=== PATIENT | male | born 1975 | race Caucasian/White ===

== ENCOUNTER → 2019-11-10 | Outpatient (CLI) | payer BC | END | disposition home or self-care (01) | LOC: LAB EV 18:30 → LAB SHORT 18:30 | DX: J02.9 Acute pharyngitis, unspecified (principal) | CPT/HCPCS: 87081 ==

== ENCOUNTER → 2019-11-30 | Outpatient (CLI) | payer BC ==
[2019-11-30 17:58] LABS: BASOPHILS ABSOLUTE AUTO 0.09 K/mm3 (0.00-0.23); BASOPHILS PERCENT AUTO 1 % (0-2); EOSINOPHILS ABSOLUTE AUTO 0.43 K/mm3 (0.00-0.68); EOSINOPHILS PERCENT AUTO 5 % (0-6); Hematocrit 44.2 % (37.0-53.0); Hemoglobin 15.3 g/dL (13.5-17.5); IMMATURE GRAN ABSOLUTE AUTO 0.02 K/mm3 (0.00-0.10); IMMATURE GRAN PERCENT AUTO 0 % (0-1); LYMPHOCYTES ABSOLUTE AUTO 3.03 K/mm3 (0.84-5.20); LYMPHOCYTES PERCENT AUTO 35 % (21-46); MONOCYTES ABSOLUTE AUTO 0.85 K/mm3 (0.16-1.47); MONOCYTES PERCENT AUTO 10 % (4-13); Mean Corpuscular HGB 29.1 pg (26.0-34.0); Mean Corpuscular HGB Conc 34.6 g/dL (31.5-36.5); Mean Corpuscular Volume 84 fL (80-100); Mean Platelet Volume 10.8 fL (9.1-12.4); NEUTROPHILS ABSOLUTE AUTO 4.21 K/mm3 (1.96-9.15); NEUTROPHILS PERCENT AUTO 49 % (41-73); Platelet Count 257 K/mm3 (150-400); RDW Coefficient Variation 12.3 % (11.7-14.2); Red Blood Cell Count 5.26 M/mm3 (4.30-5.90); White Blood Cell Count 8.63 K/mm3 (4.00-11.30)
[2019-11-30 18:07] LABS: Alanine Aminotransfer (ALT/SGP 70 U/L (12-78); Albumin, Blood 4.2 g/dL (3.4-5.0); Alk Phos 86 U/L (40-126); Anion Gap 11 mmol/L (6-16); Aspartate Aminotrans (AST/SGOT 33 U/L (12-37); Bilirubin, Total 0.5 mg/dL (0.1-1.0); Blood Urea Nitrogen 19 mg/dL (8-24); Bun/Creatinine Ratio 21.3 (12.0-20.0); CO2, Blood 28 mmol/L (21-32); Calcium, Blood 8.8 mg/dL (8.5-10.1); Chloride, Blood 101 mmol/L (98-108); Creatinine, Blood 0.89 mg/dL (0.60-1.20); Globulin, Blood 4.1 g/dL (2.2-4.0); Glomerular Filtration Rate >60 (60-); Glucose, Blood 88 mg/dL (70-99); Potassium, Blood 4.2 mmol/L (3.5-5.5); Sodium, Blood 140 mmol/L (136-145); Total Protein, Blood 8.3 g/dL (6.4-8.2)
== END ==
LOC: LAB SHORT 17:47 → LAB EV 17:47
PROVIDERS: Physician Assistant
DX: J03.91 Acute recurrent tonsillitis, unspecified (principal)
CPT/HCPCS: 80053; 85025; 87081

== ENCOUNTER 2020-10-23 18:59 | Inpatient (IN) | payer BC ==
[~2020-10-23] VITALS: Ht 185.4 cm; Wt 94.9 kg
[2020-10-23 19:49] LABS: BASOPHILS ABSOLUTE AUTO 0.07 K/mm3 (0.00-0.23); BASOPHILS PERCENT AUTO 0 % (0-2); EOSINOPHILS ABSOLUTE AUTO 0.02 K/mm3 (0.00-0.68); EOSINOPHILS PERCENT AUTO 0 % (0-6); Hematocrit 45.5 % (37.0-53.0); Hemoglobin 15.6 g/dL (13.5-17.5); IMMATURE GRAN ABSOLUTE AUTO 0.11 K/mm3 (0.00-0.10); IMMATURE GRAN PERCENT AUTO 1 % (0-1); LYMPHOCYTES ABSOLUTE AUTO 1.89 K/mm3 (0.84-5.20); LYMPHOCYTES PERCENT AUTO 10 % (21-46); MONOCYTES ABSOLUTE AUTO 2.26 K/mm3 (0.16-1.47); MONOCYTES PERCENT AUTO 12 % (4-13); Mean Corpuscular HGB 28.8 pg (26.0-34.0); Mean Corpuscular HGB Conc 34.3 g/dL (31.5-36.5); Mean Corpuscular Volume 84 fL (80-100); Mean Platelet Volume 10.3 fL (9.1-12.4); NEUTROPHILS ABSOLUTE AUTO 14.66 K/mm3 (1.96-9.15); NEUTROPHILS PERCENT AUTO 77 % (41-73); Platelet Count 279 K/mm3 (150-400); RDW Coefficient Variation 11.8 % (11.7-14.2); RDW Standard Deviation 35.7 fL (35.1-46.3); Red Blood Cell Count 5.42 M/mm3 (4.30-5.90); White Blood Cell Count 19.01 K/mm3 (4.00-11.30)
[2020-10-23 20:09] LABS: Alanine Aminotransfer (ALT/SGP 87 U/L (12-78); Albumin, Blood 4.1 g/dL (3.4-5.0); Alk Phos 130 U/L (50-136); Anion Gap 3 mmol/L (6-16); Aspartate Aminotrans (AST/SGOT 35 U/L (12-37); Bilirubin, Total 1.3 mg/dL (0.1-1.0); Blood Urea Nitrogen 16 mg/dL (8-24); Bun/Creatinine Ratio 17.8 (12.0-20.0); CO2, Blood 27 mmol/L (21-32); Calcium, Blood 9.5 mg/dL (8.5-10.1); Chloride, Blood 104 mmol/L (98-108); Glomerular Filtration Rate >60 (60-); Glucose, Blood 99 mg/dL (70-99); Potassium, Blood 3.9 mmol/L (3.5-5.5); Sodium, Blood 134 mmol/L (136-145); Total Protein, Blood 8.1 g/dL (6.4-8.2)
[2020-10-23 20:27] LABS: Source, Urine Clean Catch
[2020-10-23 20:33] LABS: Appearance, Urine Clear (Clear); Bilirubin, Urine Neg (Neg); Blood, Urine 1+ (Neg); Color, Urine Amber (P-Yellow); Glucose Qualitative, Urine Neg (Neg); Ketones, Urine 4+ (Neg); Leukocyte Esterase, Urine 1+ (Neg); Nitrite, Urine Neg (Neg); Protein, Urine 1+ (Neg); Specific Gravity, Urine 1.015 (1.003-1.022); Urobilinogen, Urine NORM (Normal)
[2020-10-23 20:43] LABS: Red Blood Cells, Urine 0-2 /hpf (0-2); Squamous Epithelial Cells Not Seen /hpf (Few)
[2020-10-23 20:44] LABS: Bacteria Not Seen /hpf
[2020-10-23] MEDS ORDERED: MULVITA PO (22:06)
[2020-10-23 22:17] LABS: International Normalized Ratio 1.13
[2020-10-24] LABS: Influenza A, PCR NEGATIVE (NEGATIVE); Influenza B, PCR NEGATIVE (NEGATIVE); Resp Syncytial Virus, PCR NEGATIVE (NEGATIVE); SARS-Cov-2 (COVID-19) PCR, MMC NEGATIVE (NEGATIVE)
--- NOTE | 2020-10-24 04:01 | NUR ---
SHIFT SUMMARY PT ARRIVED TO UNIT AROUND 0140, TRANSFERRED TO BED FROM [facility]. A/O X4, VSS, ORIENTED TO ROOM AND CALL LIGHT. C/O INFERIOR ABD PAIN, SURGERY TENTATIVELY SCHEDULED FOR LATER TODAY. DENIES N/V, NPO SINCE MIDNIGHT, ORAL SWABS PROVIDED, FLUIDS INFUSING PER ORDER, PAIN WELL CONTROLLED PER EMAR. CALL LIGHT IN REACH, WILL CONTINUE TO MONITOR AND REPORT TO ONCOMING DAY RN.
--- NOTE | 2020-10-24 09:17 | NUR ---
A&OX3, DENIES ANY NAUSEA, C/O MILD ABD PAIN, DENIES ANY NEED FOR PAIN MEDS AT THIS TIME, CONT. TO MONITOR FOR ANY CHANGES, MEDICATE FOR PAIN PRN.
--- NOTE | 2020-10-24 17:49 | NUR ---
SUMMARY NO SURGERY TODAY PER DR. MIRANDA, DENIES ANY NEED FOR PAIN MED FOR ABD PAIN T/O SHIFT, REPORTS PAIN HAS BEEN TOLERABLE, REPORTS TYLENOL HELPED SLIGHTLY FOR H/A, OOB TO AMBULATE THIS EVENING, TOLERATING WELL, NO ACUTE CHANGES THIS SHIFT.
--- NOTE | 2020-10-25 02:42 | NUR ---
SHIFT SUMMARY S/P PERF DIVERTIC, A/O X4, VSS, NPO W/ SIPS/CHIPS, INDEPENDENT IN ROOM, VOIDING WELL, REPORTS NO BM TODAY, C/O FEELING GAS IN ABD W/ ACHEY/CRAMPY FEELING, ABX INFUSING PER ORERS, PAIN WELL CONTROLLED PER EMAR. CALL LIGHT IN REACH, WILL CONTINUE TO MONITOR AND REPORT TO ONCOMLING DAY RN.
[2020-10-25 05:35] LABS: BASOPHILS ABSOLUTE AUTO 0.05 K/mm3 (0.00-0.23); BASOPHILS PERCENT AUTO 0 % (0-2); EOSINOPHILS ABSOLUTE AUTO 0.33 K/mm3 (0.00-0.68); EOSINOPHILS PERCENT AUTO 3 % (0-6); Hematocrit 40.8 % (37.0-53.0); Hemoglobin 13.7 g/dL (13.5-17.5); IMMATURE GRAN ABSOLUTE AUTO 0.06 K/mm3 (0.00-0.10); IMMATURE GRAN PERCENT AUTO 1 % (0-1); LYMPHOCYTES ABSOLUTE AUTO 2.89 K/mm3 (0.84-5.20); LYMPHOCYTES PERCENT AUTO 23 % (21-46); MONOCYTES ABSOLUTE AUTO 1.34 K/mm3 (0.16-1.47); MONOCYTES PERCENT AUTO 10 % (4-13); Mean Corpuscular HGB 29.1 pg (26.0-34.0); Mean Corpuscular HGB Conc 33.6 g/dL (31.5-36.5); Mean Corpuscular Volume 87 fL (80-100); Mean Platelet Volume 10.5 fL (9.1-12.4); NEUTROPHILS ABSOLUTE AUTO 8.16 K/mm3 (1.96-9.15); NEUTROPHILS PERCENT AUTO 64 % (41-73); Platelet Count 273 K/mm3 (150-400); RDW Standard Deviation 38.5 fL (35.1-46.3); White Blood Cell Count 12.83 K/mm3 (4.00-11.30)
[2020-10-25 06:14] LABS: Alanine Aminotransfer (ALT/SGP 55 U/L (12-78); Albumin, Blood 3.1 g/dL (3.4-5.0); Albumin/Globulin Ratio 0.7 (0.8-1.8); Alk Phos 115 U/L (50-136); Anion Gap 6 mmol/L (6-16); Aspartate Aminotrans (AST/SGOT 22 U/L (12-37); Bilirubin, Total 1.2 mg/dL (0.1-1.0); Blood Urea Nitrogen 11 mg/dL (8-24); Bun/Creatinine Ratio 13.6 (12.0-20.0); CO2, Blood 26 mmol/L (21-32); Calcium, Blood 8.6 mg/dL (8.5-10.1); Chloride, Blood 105 mmol/L (98-108); Creatinine, Blood 0.81 mg/dL (0.60-1.20); Globulin, Blood 4.2 g/dL (2.2-4.0); Glomerular Filtration Rate >60 (60-); Glucose, Blood 74 mg/dL (70-99); Potassium, Blood 3.7 mmol/L (3.5-5.5); Sodium, Blood 137 mmol/L (136-145); Total Protein, Blood 7.3 g/dL (6.4-8.2)
--- NOTE | 2020-10-25 16:16 | NUR ---
Shift Summary A/Ox4. Independent, able to make needs known. C/O mild lower abdominal pain, denies need for pain medication. Patient reports passing flatus. Denies nausea, vomiting, diarrhea. Eager to go home. Tolerates PO clear liquids good. Saline locked. No acute changes. account installer Arika to assume care, report given.
--- NOTE | 2020-10-25 17:03 | NUR ---
CARE ASSUMED OF PT AT 1600. PT IN SHOWER AT TIME CARE WAS ASSUMED. WILL MONITOR UNTIL REPORT TO NOC RN.
--- NOTE | 2020-10-25 19:11 | NUR ---
SHIFT SUMMARY NO CHANGES TO REPORT SINCE CARE WAS ASSUMED AT 1600.
--- NOTE | 2020-10-26 04:25 | NUR ---
SHIFT SUMMARY PT RESTING WELL THIS AM. AAOX4. PT REPORTING MINIMAL DISCOMFORT THIS SHIFT, DENIES NAUSEA/EMESIS. ABD DISTENSION DECREASED PER PT THIS SHIFT, REPORTING MODERATE AMOUNTS OF FLATUS, NO BM. INDEPENDENT IN ROOM. TOLERATING CLEAR LIQUIDS + GOOD URINE OUTPUT. IV ABX PER ORDERS. AWAITING LABS THIS AM. CURRENTLY PT RESTING WELL IN BED WITH CALL LIGHT IN REACH.
[2020-10-26 05:29] LABS: Hematocrit 38.1 % (37.0-53.0); Hemoglobin 12.8 g/dL (13.5-17.5); Mean Corpuscular HGB Conc 33.6 g/dL (31.5-36.5); Mean Corpuscular Volume 86 fL (80-100); Mean Platelet Volume 10.1 fL (9.1-12.4); Platelet Count 269 K/mm3 (150-400); RDW Standard Deviation 37.9 fL (35.1-46.3); Red Blood Cell Count 4.42 M/mm3 (4.30-5.90); White Blood Cell Count 8.41 K/mm3 (4.00-11.30)
[2020-10-26] MEDS ORDERED: AMOCLA875 PO (11:55)
[2020-10-26] MEDS ORDERED: DOCU100 PO (11:55)
[2020-10-26] MEDS ORDERED: ACET500 PO (11:55)
--- NOTE | 2020-10-26 13:30 | NUR ---
DISCHARGE SUMMARY PT A&OX4, VSS, WALKED OFF FLOOR (DECLINED WC), WITH ALL PERSONAL POSSESSIONS INCLUDING DC PACKET AND SCRIPT FOR AUGMENTIN, TO GO HOME. DC INSTRUCTIONS PROVIDED. PT REP UNDERSTANDING THOSE INSTRUCTIONS INCLUDING FU APPT WITH DR MIRANDA, LOW FAT DIET X2WKS, PROBIOTIC/YOGURT 2-3 HOURS PRIOR TO TAKING ABX. IV DC'D.
== END 2020-10-26 14:33 | disposition home or self-care (01) | DRG 392 ==
LOC: ER 18:59 → SURS 10-24 01:00
PROVIDERS: Emergency Medicine; Physician Assistant; Surgery; ADMIT Surgery
DX: K57.20 Diverticulitis of large intestine with perforation and abscess without bleeding (principal); Z20.822 Contact with and (suspected) exposure to COVID-19
CPT/HCPCS: 0241U; 36415; 74177; 80053; 81001; 83605; 83690; 85025; 85027; 85610; 85730; 87040; 87086; 93005; 93010; 96374-59; 96375; 96376; 99285-25; A9270; G0378; J1170; J2543; J7030; J7050; J7120; Q9967

== ENCOUNTER 2020-10-27 17:09 | Inpatient (IN) | payer BC ==
[~2020-10-27] VITALS: Ht 182.9 cm; Wt 97.5 kg
[~2020-10-27 17:09] MED LIST: ACET500 PO; AMOCLA875 PO; DOCU100 PO; MULVITA PO
[2020-10-27 17:42] LABS: BASOPHILS ABSOLUTE AUTO 0.06 K/mm3 (0.00-0.23); BASOPHILS PERCENT AUTO 0 % (0-2); EOSINOPHILS PERCENT AUTO 1 % (0-6); Hematocrit 43.6 % (37.0-53.0); Hemoglobin 14.3 g/dL (13.5-17.5); IMMATURE GRAN ABSOLUTE AUTO 0.08 K/mm3 (0.00-0.10); IMMATURE GRAN PERCENT AUTO 1 % (0-1); LYMPHOCYTES ABSOLUTE AUTO 1.53 K/mm3 (0.84-5.20); LYMPHOCYTES PERCENT AUTO 10 % (21-46); MONOCYTES ABSOLUTE AUTO 2.05 K/mm3 (0.16-1.47); MONOCYTES PERCENT AUTO 13 % (4-13); Mean Corpuscular HGB 28.1 pg (26.0-34.0); Mean Corpuscular HGB Conc 32.8 g/dL (31.5-36.5); Mean Corpuscular Volume 86 fL (80-100); Mean Platelet Volume 9.7 fL (9.1-12.4); NEUTROPHILS ABSOLUTE AUTO 12.34 K/mm3 (1.96-9.15); NEUTROPHILS PERCENT AUTO 76 % (41-73); Platelet Count 349 K/mm3 (150-400); RDW Coefficient Variation 11.8 % (11.7-14.2); RDW Standard Deviation 37.4 fL (35.1-46.3); Red Blood Cell Count 5.08 M/mm3 (4.30-5.90); White Blood Cell Count 16.16 K/mm3 (4.00-11.30)
[2020-10-27 18:03] LABS: Alanine Aminotransfer (ALT/SGP 67 U/L (12-78); Albumin, Blood 3.3 g/dL (3.4-5.0); Albumin/Globulin Ratio 0.7 (0.8-1.8); Alk Phos 169 U/L (50-136); Anion Gap 7 mmol/L (6-16); Aspartate Aminotrans (AST/SGOT 49 U/L (12-37); Bilirubin, Total 0.9 mg/dL (0.1-1.0); Blood Urea Nitrogen 12 mg/dL (8-24); Bun/Creatinine Ratio 15.7 (12.0-20.0); CO2, Blood 23 mmol/L (21-32); Calcium, Blood 9.3 mg/dL (8.5-10.1); Chloride, Blood 105 mmol/L (98-108); Creatinine, Blood 0.76 mg/dL (0.60-1.20); Globulin, Blood 4.7 g/dL (2.2-4.0); Glomerular Filtration Rate >60 (60-); Glucose, Blood 91 mg/dL (70-99); Potassium, Blood 3.8 mmol/L (3.5-5.5); Sodium, Blood 135 mmol/L (136-145)
[2020-10-27 18:57] LABS: Source, Urine Clean Catch
[2020-10-27 19:03] LABS: Appearance, Urine Clear (Clear); Bilirubin, Urine Neg (Neg); Blood, Urine 1+ (Neg); Color, Urine Yellow (P-Yellow); Glucose Qualitative, Urine Neg (Neg); Ketones, Urine 4+ (Neg); Leukocyte Esterase, Urine 1+ (Neg); Nitrite, Urine Neg (Neg); Protein, Urine 1+ (Neg); Urobilinogen, Urine 1+ (Normal)
[2020-10-27 19:09] LABS: Bacteria Not Seen /hpf; Mucus Light (0-Heavy); Red Blood Cells, Urine Rare /hpf (0-2); Squamous Epithelial Cells Rare /hpf (Few); White Blood Cells, Urine Rare /hpf (0-5)
--- NOTE | 2020-10-28 04:52 | NUR ---
SHIFT SUMMARY PT NEW ADMIT THIS SHIFT. AAOX4. DISCOMFORT DECREASED WITH 0.5MG IV DILAUDID. NO NAUSEA/EMESIS. ABD SOFT/TENDER WITH PALPATION. ORIENTED TO ROOM + CALL LIGHT USE. IVF PER ORDERS. PT REFUSING SCDs. RESTING WELL THIS AM WITH CALL LIGHT IN REACH.
[2020-10-28 05:54] LABS: BASOPHILS ABSOLUTE AUTO 0.07 K/mm3 (0.00-0.23); BASOPHILS PERCENT AUTO 0 % (0-2); EOSINOPHILS ABSOLUTE AUTO 0.23 K/mm3 (0.00-0.68); EOSINOPHILS PERCENT AUTO 1 % (0-6); Hematocrit 38.3 % (37.0-53.0); Hemoglobin 13.1 g/dL (13.5-17.5); IMMATURE GRAN ABSOLUTE AUTO 0.07 K/mm3 (0.00-0.10); IMMATURE GRAN PERCENT AUTO 0 % (0-1); LYMPHOCYTES ABSOLUTE AUTO 1.62 K/mm3 (0.84-5.20); LYMPHOCYTES PERCENT AUTO 10 % (21-46); MONOCYTES PERCENT AUTO 14 % (4-13); Mean Corpuscular HGB 29.2 pg (26.0-34.0); Mean Corpuscular HGB Conc 34.2 g/dL (31.5-36.5); Mean Corpuscular Volume 85 fL (80-100); Mean Platelet Volume 10.1 fL (9.1-12.4); NEUTROPHILS ABSOLUTE AUTO 11.82 K/mm3 (1.96-9.15); NEUTROPHILS PERCENT AUTO 74 % (41-73); Platelet Count 296 K/mm3 (150-400); RDW Coefficient Variation 11.9 % (11.7-14.2); RDW Standard Deviation 36.9 fL (35.1-46.3); Red Blood Cell Count 4.49 M/mm3 (4.30-5.90); White Blood Cell Count 16.01 K/mm3 (4.00-11.30)
[2020-10-28 06:15] LABS: Anion Gap 8 mmol/L (6-16); Blood Urea Nitrogen 8 mg/dL (8-24); Bun/Creatinine Ratio 9.9 (12.0-20.0); CO2, Blood 23 mmol/L (21-32); Calcium, Blood 8.4 mg/dL (8.5-10.1); Chloride, Blood 105 mmol/L (98-108); Creatinine, Blood 0.81 mg/dL (0.60-1.20); Glomerular Filtration Rate >60 (60-); Glucose, Blood 101 mg/dL (70-99); Potassium, Blood 3.6 mmol/L (3.5-5.5); Sodium, Blood 136 mmol/L (136-145)
--- NOTE | 2020-10-28 18:01 | NUR ---
REPORTS PAIN HAS BEEN TOLERABLE WITH CURRENT PAIN REGIMEN, REPORTS HAVING SOME ABD BLAOTING, TOLERATING SIPS OF CLEAR LIQUIDS, DECREASED APPETITE, AMBULATED DOWN THE HALLS, NO ACUTE CHANGES THIS SHIFT.
--- NOTE | 2020-10-29 08:07 | NUR ---
REPORTS PASSING FLATUS, DENIES ANY NEED FOR PAIN MEDS AT THIS TIME, DENIES ANY NAUSEA, C/O MILD ABD BLOATING, DENIES ANY OTHER DISCOMFORT, CONT. TO MONITOR FOR ANY CHANGES, ENCOURAGED TO AMBULATE.
--- NOTE | 2020-10-29 17:48 | NUR ---
SUMMARY DENIES ANY NEED FOR PAIN MEDS T/O SHIFT, DENIES ANY NAUSEA, AMBULATED X3 TODAY, STARTED FULL LIQUIDS FOR DINNER, TOLERATING WELL SO FAR, REPORTS PASSING FLATUS TODAY, NO ACUTE CHANGES THIS SHIFT.
--- NOTE | 2020-10-30 03:59 | NUR ---
SHIFT SUMMARY: PT STABLE THROUGHOUT NIGHT. VS WNL. IV ABX AND FLUIDS INFUSING PER EMAR. PT VOIDING WELL. DENIES NEED FOR PAIN MEDS THIS SHIFT. C/O NAUSEA ONCE AND MEDICATED WITH ZOFRAN. NO EMESIS. PT INDEPENDENT IN ROOM.
[2020-10-30 05:00] LABS: BASOPHILS ABSOLUTE AUTO 0.06 K/mm3 (0.00-0.23); BASOPHILS PERCENT AUTO 1 % (0-2); EOSINOPHILS ABSOLUTE AUTO 0.47 K/mm3 (0.00-0.68); EOSINOPHILS PERCENT AUTO 6 % (0-6); Hematocrit 40.6 % (37.0-53.0); Hemoglobin 13.6 g/dL (13.5-17.5); IMMATURE GRAN PERCENT AUTO 1 % (0-1); LYMPHOCYTES ABSOLUTE AUTO 2.77 K/mm3 (0.84-5.20); LYMPHOCYTES PERCENT AUTO 36 % (21-46); MONOCYTES ABSOLUTE AUTO 1.08 K/mm3 (0.16-1.47); MONOCYTES PERCENT AUTO 14 % (4-13); Mean Corpuscular HGB 28.4 pg (26.0-34.0); Mean Corpuscular HGB Conc 33.5 g/dL (31.5-36.5); Mean Corpuscular Volume 85 fL (80-100); Mean Platelet Volume 9.7 fL (9.1-12.4); NEUTROPHILS ABSOLUTE AUTO 3.33 K/mm3 (1.96-9.15); NEUTROPHILS PERCENT AUTO 43 % (41-73); Platelet Count 377 K/mm3 (150-400); RDW Coefficient Variation 11.9 % (11.7-14.2); RDW Standard Deviation 36.2 fL (35.1-46.3); Red Blood Cell Count 4.79 M/mm3 (4.30-5.90); White Blood Cell Count 7.81 K/mm3 (4.00-11.30)
[2020-10-30 05:20] LABS: Alanine Aminotransfer (ALT/SGP 56 U/L (12-78); Albumin, Blood 2.9 g/dL (3.4-5.0); Albumin/Globulin Ratio 0.7 (0.8-1.8); Alk Phos 158 U/L (50-136); Anion Gap 7 mmol/L (6-16); Aspartate Aminotrans (AST/SGOT 31 U/L (12-37); Bilirubin, Total 0.4 mg/dL (0.1-1.0); Blood Urea Nitrogen 9 mg/dL (8-24); Bun/Creatinine Ratio 11.6 (12.0-20.0); CO2, Blood 26 mmol/L (21-32); Calcium, Blood 8.6 mg/dL (8.5-10.1); Chloride, Blood 107 mmol/L (98-108); Creatinine, Blood 0.78 mg/dL (0.60-1.20); Globulin, Blood 4.3 g/dL (2.2-4.0); Glomerular Filtration Rate >60 (60-); Glucose, Blood 92 mg/dL (70-99); Potassium, Blood 3.6 mmol/L (3.5-5.5); Sodium, Blood 140 mmol/L (136-145); Total Protein, Blood 7.2 g/dL (6.4-8.2)
--- NOTE | 2020-10-30 13:33 | NUR ---
HE HAS BEEN AWAKE ALL DAY BUT HAS HAD A H/A FOR MUCH OF IT. TYLENOL WAS INEFFECTIVE. I JUST GAVE HIM AN OXYCODONE TO SEE IF THAT WILL HELP. HE HAS BEEN HESITANT TO TAKE OXYCODONE BECAUSE HE SAID ONE TIME HE BECAME EXTREMELY CONSTIPATED FROM IT. I WILL ASK THE DOCTOR FOR A STOOL SOFTNER AND PRN BOWEL CARE. VERY LITTLE ABD PAIN. NO NAUSEA BUT HE IS NOT TAKING IN MUCH OF HIS FL DIET. IVF'S CONTINUE. AFEBRILE.
--- NOTE | 2020-10-30 14:48 | NUR ---
THE OXYCODONE WAS EFFECTIVE FOR HIS H/A. HE IS RESTING MORE COMFORTABLY. BOWEL CARE ORDERS RECEIVED. THEY WILL START TONIGHT. HIS PO INTAKE REMAINS POOR, 5% AT LUNCH.
--- NOTE | 2020-10-30 16:38 | NUR ---
HE JUST RETURNED TO HIS ROOM AFTER A LONG WALK. HE HAD 1 VISITOR THIS AFTERNOON. HE FEELS A LITTLE BLOATED. PO INTAKE POOR. NO N/V. EARLIER H/A RELIEVED BY OXYCODONE. IVF'S CONTINUE. VOIDS WELL. HE SAYS THE MAIN REASON HE ISN'T TAKING HIS FL DIET IS THE PAIN AFTERWARDS.
--- NOTE | 2020-10-30 16:56 | NUR ---
DR.SPENCE GONZALEZ.
--- NOTE | 2020-10-31 05:41 | NUR ---
SHIFT SUMMARY PT RESTED WELL T/O MORNING. AAOX4. PT REPORTING MINIMAL DISCOMFORT THIS SHIFT, NO PAIN MEDS. PT REPORTING INCREASED NAUSEA POST AMBULATION OUT IN HALLS, DECREASED WITH NEW ORDER FOR REGLAN, NO EMESIS. MINIMAL PO INTAKE. IVF + ABX PER ORDERS. PT RESTING WELL SINCE MIDNIGHT WITH CALL LIGHT IN REACH. WILL REPORT OFF TO DAY SHIFT RN DURING BEDSIDE REPORTING.
--- NOTE | 2020-10-31 07:43 | NUR ---
PT REPORTS ABD LESS PAINFUL THAN YESTERDAY. REPORTS SLIGHT PAIN RLQ. PT DENIES NAUSEA
[2020-10-31] MEDS ORDERED: LEVFLO500 PO (14:29)
[2020-10-31] MEDS ORDERED: FLAGYL500 MG PO (14:30)
[2020-10-31] MEDS ORDERED: DOCU100 PO (14:31)
[2020-10-31] MEDS ORDERED: OXYC5 PO (14:53)
[2020-10-31] MEDS ORDERED: METR500 PO (15:54)
--- NOTE | 2020-10-31 16:10 | NUR ---
1550 DISCHARGED TO HOME PT AMBULATING IN HALLWAYS, REPORTS SOME ABD PAIN WHICH IS SLIGHTLY WORSE IN RLQ BUT HAS DENIED NEED FOR PAIN MEDS. BETTY FULL LIQUID DIET. PRESCRIPTIONS GIVEN TO PATIENT.
== END 2020-10-31 16:06 | disposition home or self-care (01) | DRG 392 ==
LOC: ER 17:09 → ERHOLD 17:10 → SURS 21:23
PROVIDERS: Physician Assistant; Surgery; ADMIT Surgery
DX: K57.20 Diverticulitis of large intestine with perforation and abscess without bleeding (principal); K59.00 Constipation, unspecified
CPT/HCPCS: 36415; 74177; 80048; 80053; 81001; 85025; 96365-59; 96375; 99285-25; A9270; J0744; J1170; J1650; J1885; J2405; J2765; J3010; J7030; Q9967

== ENCOUNTER 2021-01-02 06:40 | Day surgery (SDC) | payer BC ==
[~2021-01-02] VITALS: Ht 185.4 cm; Wt 93.5 kg
[~2021-01-02 06:40] MED LIST changes: +FLAGYL500 MG PO; +LEVFLO500 PO; +METR500 PO; +OXYC5 PO
== END 2021-01-02 08:51 | disposition home or self-care (01) ==
LOC: ORSCSDS 06:40
PROVIDERS: Surgery
PROC: 0DBN8ZX Excision of Sigmoid Colon, Via Natural or Artificial Opening Endoscopic, Diagnostic (ICD-10-PCS; principal; 2021-01-02 08:00)
DX: K57.92 Diverticulitis of intestine, part unspecified, without perforation or abscess without bleeding (principal); D12.8 Benign neoplasm of rectum; K57.30 Diverticulosis of large intestine without perforation or abscess without bleeding; Z79.899 Other long term (current) drug therapy
CPT/HCPCS: 88305; J0330; J0461; J2405; J2704; J7120

== ENCOUNTER 2022-12-19 19:32 | Emergency (ER) | payer BC ==
[~2022-12-19] VITALS: Ht 182.9 cm; Wt 95.2 kg
== END 2022-12-19 21:57 | disposition home or self-care (01) ==
LOC: ER 19:32
DX: T78.40XA Allergy, unspecified, initial encounter (principal); X58.XXXA Exposure to other specified factors, initial encounter; Z79.899 Other long term (current) drug therapy
CPT/HCPCS: 99283

== ENCOUNTER 2024-12-05 09:01 | Emergency (ER) | payer BC ==
[~2024-12-05] VITALS: Ht 185.4 cm; Wt 97.5 kg
[2024-12-05 09:51] VITALS: BP 154/96
[2024-12-05] MEDS ORDERED: Ketorolac Tromethamine 15mg Vial IV ONE (10:00)
[2024-12-05 10:30] LABS: Source, Urine Clean Catch
[2024-12-05 10:38] LABS: Appearance, Urine Clear (Clear); Bilirubin, Urine Neg (Neg); Blood, Urine Neg (Neg); Color, Urine Yellow (P-Yellow); Glucose Qualitative, Urine Neg (Neg); Ketones, Urine Neg (Neg); Leukocyte Esterase, Urine Neg (Neg); Nitrite, Urine Neg (Neg); Protein, Urine Neg (Neg); Urobilinogen, Urine NORM (Normal)
[2024-12-05 11:01] LABS: BASOPHILS ABSOLUTE AUTO 0.09 K/mm3 (0.00-0.23); BASOPHILS PERCENT AUTO 1 % (0-2); EOSINOPHILS ABSOLUTE AUTO 0.25 K/mm3 (0.00-0.68); EOSINOPHILS PERCENT AUTO 2 % (0-6); Hematocrit 44.9 % (37.0-53.0); Hemoglobin 15.8 g/dL (13.5-17.5); IMMATURE GRAN ABSOLUTE AUTO 0.04 K/mm3 (0.00-0.10); IMMATURE GRAN PERCENT AUTO 0 % (0-1); LYMPHOCYTES ABSOLUTE AUTO 2.37 K/mm3 (0.84-5.20); LYMPHOCYTES PERCENT AUTO 18 % (21-46); MONOCYTES PERCENT AUTO 11 % (4-13); Mean Corpuscular HGB 29.8 pg (26.0-34.0); Mean Corpuscular HGB Conc 35.2 g/dL (31.5-36.5); Mean Corpuscular Volume 85 fL (80-100); Mean Platelet Volume 10.5 fL (9.1-12.4); NEUTROPHILS ABSOLUTE AUTO 8.92 K/mm3 (1.96-9.15); NEUTROPHILS PERCENT AUTO 68 % (41-73); Platelet Count 232 K/mm3 (150-400); RDW Coefficient Variation 12.4 % (11.7-14.2); RDW Standard Deviation 38.3 fL (35.1-46.3); White Blood Cell Count 13.17 K/mm3 (4.00-11.30)
[2024-12-05] MEDS ORDERED: Amoxicillin/Clavulanate K 875 MG Tab PO ONE (11:30)
[2024-12-05 11:42] LABS: Albumin/Globulin Ratio 1.1 (0.8-1.8); Bilirubin, Total 1.2 mg/dL (0.1-1.0); Bun/Creatinine Ratio 18.6 (12.0-20.0); Calcium, Blood 8.6 mg/dL (8.5-10.1); Creatinine, Blood 0.75 mg/dL (0.60-1.20); Globulin, Blood 3.7 g/dL (2.2-4.0); Potassium, Blood 3.8 mmol/L (3.5-5.5); Total Protein, Blood 7.7 g/dL (6.4-8.2)
[2024-12-05] MEDS ORDERED: AMOCLA875 PO (11:50)
== END 2024-12-05 11:59 | disposition home or self-care (01) ==
LOC: ER 09:01
PROVIDERS: Emergency Medicine
DX: K57.32 Diverticulitis of large intestine without perforation or abscess without bleeding (principal)
CPT/HCPCS: 74177; 80053; 81003; 83690; 85025; 96374-59; 99284-25; A9270; J1885; Q9967